=== PATIENT | female | born 1970 | race Caucasian/White ===

== ENCOUNTER 2019-01-11 08:40 | Emergency (ER) | payer OTHER, BC, SELFPAY ==
[2019-01-11 08:41] VITALS: BP 127/76; PULSE 75; RESP 16; TEMP 36.8; O2SAT 96; BMI 36.6
--- NOTE | 2019-01-11 09:07 | ED.DCSUM_ITS ---
History of Present Illness Chief Complaint: Back Detail of Chief Complaint: Back spasm Informant: Patient Onset: Today Context: Sudden Onset Current Severity: Mild Maximum Severity: Moderate Narrative: Patient has a history of back pain and back spasms. She was sitting at work today and reached for a binder. She felt a pulling sensation in her back. When she went to replace the binder she got tight spasm the left side of her mid back. She used to take baclofen on a regular basis but has not taken it in quite some time. There is no direct trauma to her back. No pain radiating to her arms or legs. Past Medical History - Allergies and Home Meds Allergies/Adverse Reactions: Allergies No Known Allergies Allergy (Verified 01/11/19 08:48) Primary Care Physician: Abdifatah Zhu MD [Primary Care Provider] - Prior records reviewed: Yes Past Medical History: - - Reviewed Lives: Spouse/ Significant Other Smoking Status: Never smoker Review of Systems General: Denies: Chills, Fever Eyes: Denies: Visual changes - bilaterally ENT: Denies: Bilateral ear pain Cardiovascular: Denies: Chest pain Respiratory: Denies: Dyspnea, Cough Gastrointestinal: Denies: Abdominal pain, Nausea, Vomiting, Diarrhea Genitourinary: Denies: Dysuria Musculoskeletal: Reports: Back pain Skin: Denies: Rash, Abrasions, Wounds Neurological: Denies: Weakness, Parasthesia Endocrine: Denies: Polyuria, Polydipsia Hematologic: Denies: Easy bruising Allergy: Denies: Uticaria Physical Exam Vital Signs/Narrative: Vital Signs Temp Pulse Resp BP Pulse Ox 01/11/19 08:41 98.2 F 75 16 127/76 H 96 Inital Vital Signs reviewed: Yes General: Well nourished, Well developed Head: Normocephalic ENT: Moist mucous membranes Neck: Supple Cardiovascular: Regular rate, Regular rhythm Respiratory: No distress, CTA bilaterally Abdomen: Soft, Nontender Back: Spinal tenderness - Tenderness to palpation in the left paraspinal muscles in the lower thoracic and upper lumbar region. No midline tenderness. No overlying skin change. Extremities: Nontender, No edema Neurological: Alert, Oriented x3, Normal Strength, Normal Sensation Psychological: Normal affect Diagnostic/Tx/Re-eval - Medical Decision Making Patient was given IM Toradol along with p.o. Flexeril and 1 tab of [place]. On repeat evaluation patient reports improvement. She will be discharged with coworkers this time. ED Disposition - Plan for ED Patient: Disposition: Home or Assisted Living Diagnosis: Back muscle spasm Instructions: BACK SPASM, No Trauma Prescriptions: cycloBENZAPRine HCl [Flexeril] 10 mg PO TID PRN #20 tablet PRN Reason: Muscle Spasm Naproxen [Naprosyn] 500 mg PO BID PRN PRN #20 tablet PRN Reason: Pain Referrals: [facility] PHYSICIANS] - 3-5 Days
[2019-01-11] MEDS: cycloBENZAPRine HCl 10 MG Tablet PO (09:35)
[2019-01-11] MEDS: HYDROcodone Bitartrate/Apap 5/325 Tablet PO (09:35)
[2019-01-11] MEDS: Ketorolac 60 MG/2 ML Vial IM (09:35)
--- NOTE | 2019-01-11 11:37 | ED.RN ---
Admin tok pt to [facility] after here to receive proper return to work papers. He was informed the paperwork given at d/c is adequate. He (Fabiano) stated pt did not need to have drug testing at his arrival.
== END 2019-01-11 11:39 | disposition home or self-care (01) ==
PROVIDERS: Emergency Provider Emergency Medicine; Family Provider Family Medicine; PCP Family Medicine
DX: M62.830 Muscle spasm of back (principal); M54.9 Dorsalgia, unspecified; X50.9XXA Other and unspecified overexertion or strenuous movements or postures, initial encounter; Y93.9 Activity, unspecified; Y92.9 Unspecified place or not applicable
CPT/HCPCS: 96372; 99284

== ENCOUNTER 2019-12-19 12:45 | Emergency (ER) | payer OTHER, BC, SELFPAY ==
[2019-01-25 17:20] VITALS: BMI 32.1
[2019-12-19 12:46] VITALS: BP 134/101; PULSE 110; RESP 15; TEMP 36.6; O2SAT 96; BMI 33.6
--- NOTE | 2019-12-19 13:00 | ED.RN ---
pt will need to fall up with [facility] unless pt is d/c later than 1600. [facility] was not called. gloria sherwood rn [id number]
--- NOTE | 2019-12-19 13:33 | RAD_ITS ---
STUDY: X-RAY - LUMBAR SPINE REASON FOR EXAM: Female, 49 years old. PAIN, SOMETIMES W/ RADIATION TOWARD BILAT L.E.. NKI TECHNIQUE: 3 view(s) of the lumbar spine were obtained. COMPARISON: None FINDINGS: Normal lumbar lordosis. There is no substantial scoliosis. There is a normal alignment of the vertebrae. There is multilevel endplate spondylosis of the lumbar vertebrae. Marked disc space narrowing at the L2-L3 level The soft tissue structures are unremarkable. RAD/Lumbar Spine 2 or 3 Views IMPRESSION: Degenerative changes of the spine, as detailed above. Electronically Signed: Loco Lawson, at 14:35 EDT , Service support ,
[2019-12-19] MEDS: Ketorolac 30 MG/ML Syringe IM (14:59)
--- NOTE | 2019-12-19 15:16 | ED.DCSUM_ITS ---
History of Present Illness Chief Complaint: Back Informant: Patient Narrative: Patient is a 49-year-old female who presents to the emergency department for lower back pain. This started while at work. She states she was bending over to picking supervisor something when she twisted funny. It had a sharp pain in her back. The majority is on the left side. None of the pain down her legs. She denies any saddle anesthesia. No urinary/bowel incontinence/retention. She denies any fevers or chills. She did take a diclofenac prior at lunchtime prior to the event happening. She does have chronic back issues. Has required injections before in the past. No history of spine surgeries. She denies any recent falls or trauma. She has been able to ambulate. Sitting down and standing up makes the pain worse. Twisting does not seem to bother it. No abdominal pain or chest pain/shortness of breath. While lying this still the pain is mild but becomes severe at certain times with flexion/extension. Past Medical History - Allergies and Home Meds Allergies/Adverse Reactions: Allergies No Known Allergies Allergy (Verified 12/19/19 12:46) Primary Care Physician: Abdifatah Zhu MD [Primary Care Provider] - 2 Days Prior records reviewed: Yes Smoking Status: Never smoker Alcohol: None Drugs: None Review of Systems All systems negative except as indicated General: Denies: Chills, Fever, Sweats Eyes: Denies: Visual changes - bilaterally, Diplopia ENT: Denies: Rhinorrhea, Sore throat Cardiovascular: Denies: Chest pain, Palpitations Respiratory: Denies: Dyspnea, Cough, Dyspnea on exertion Gastrointestinal: Denies: Abdominal pain, Nausea, Vomiting, Diarrhea Genitourinary: Denies: Dysuria, Hematuria, Frequency Musculoskeletal: Reports: Back pain. Denies: Neck pain, Swelling, Extremity Pain Skin: Denies: Rash, Wounds Neurological: Denies: Headache, Weakness, Numbness Physical Exam Vital Signs/Narrative: Vital Signs Temp Pulse Resp BP Pulse Ox 12/19/19 12:46 97.9 F 110 H 15 134/101 H 96 Inital Vital Signs reviewed: Yes General: Well nourished, Well developed, No Acute Distress Head: Normocephalic, Atraumatic Eyes: Perrl, EOMI ENT: Moist mucous membranes, No rhinorrhea Neck: Supple, Nontender Cardiovascular: Regular rate, Regular rhythm, No murmurs Respiratory: No distress, CTA bilaterally, Chest nontender Abdomen: Soft, Nontender, Nondistended, Normal bowel sounds Back: Normal Inspection, - - Tenderness along the lumbar bilateral paraspinal musculature but worse on the right. Step-off signs appreciated. 5 muscle strength in lower extremities. 2 out of 4 patellar reflexes bilaterally. Neurovascular intact.. Negative for: CVA tenderness, Spinal tenderness Extremities: Nontender, No edema, - - Negative straight leg test bilaterally. Skin: Normal color, No rash Neurological: Alert, Oriented x3, Cranial nerves II-XII grossly intact, Normal Strength, Normal Sensation Psychological: Normal affect, Normal Mood Diagnostic/Tx/Re-eval - Medical Decision Making Patient presents to the [facility] for nontraumatic back pain. She was lifting at the time of the pain. Concern for some lumbar herniation. No surgical red flag symptoms on history or physical. X-rays were obtained which showed degenerative changes. She is able to stand and walk in the emergency department. Gave a shot of Toradol. This did slightly help. She already has muscle relaxers, diclofenac at home. She feels comfortable using this. At this time will discharge home in stable condition. She is to follow-up with her PCP. If she develops any the red flag symptoms that we discussed she is to return to the [facility] immediately. She understands and is agreeable with this plan. ED Disposition - Plan for ED Patient: Disposition: Home or Assisted Living Diagnosis: Lumbago Instructions: ED LUMBAR SPRAIN/STRAIN Referrals: Abdifatah Zhu MD [Primary Care Provider] - 2 Days
== END 2019-12-19 15:26 | disposition home or self-care (01) ==
PROVIDERS: Emergency Provider Emergency Medicine; PCP Family Medicine
DX: M54.5 Low back pain (principal)
CPT/HCPCS: 72100; 96372; 99282